=== PATIENT | male | born 1995 | race Caucasian/White ===

== ENCOUNTER 2017-09-12 22:01 | Emergency (ER) | payer SELFPAY ==
[~2017-09-12] VITALS: Ht 182.9 cm; Wt 72.7 kg
[2017-09-12 22:16] VITALS: BP 133/76; TEMP 98.6
[2017-09-12 23:06] VITALS: PULSE 77
== END 2017-09-12 23:06 | disposition home or self-care (01) ==
LOC: COL.ER 22:01
DX: T23.031A Burn of unspecified degree of multiple right fingers (nail), not including thumb, initial encounter (principal); X13.1XXA Other contact with steam and other hot vapors, initial encounter; Y92.009 Unspecified place in unspecified non-institutional (private) residence as the place of occurrence of the external cause